=== PATIENT | male | born 1970 | race Caucasian/White ===

== ENCOUNTER 2022-05-06 12:00 | Outpatient (CLI) | payer OTHER, SELFPAY | END 2022-05-06 12:01 | disposition home or self-care (01) | PROVIDERS: PCP Family Medicine; Visit Provider Family Medicine | DX: I10 Essential (primary) hypertension (principal); Z12.5 Encounter for screening for malignant neoplasm of prostate; Z13.6 Encounter for screening for cardiovascular disorders | CPT/HCPCS: 80048; 80061; 84153 ==

== ENCOUNTER 2023-04-14 07:56 | Outpatient (CLI) | payer OTHER, SELFPAY | END 2023-04-14 07:57 | disposition home or self-care (01) | PROVIDERS: PCP Family Medicine; Visit Provider Family Medicine | DX: E78.5 Hyperlipidemia, unspecified (principal); I10 Essential (primary) hypertension | CPT/HCPCS: 80048; 80061; 84460 ==

== ENCOUNTER 2024-08-09 08:57 | Outpatient (CLI) | payer OTHER, SELFPAY | END 2024-08-09 08:58 | disposition home or self-care (01) | PROVIDERS: PCP Family Medicine; Visit Provider Family Medicine | DX: E78.2 Mixed hyperlipidemia (principal); I10 Essential (primary) hypertension; Z12.5 Encounter for screening for malignant neoplasm of prostate | CPT/HCPCS: 80048; 80061; 84460; G0103 ==